=== PATIENT | female | born 1965 | race Caucasian/White ===

== ENCOUNTER 2017-03-27 15:47 | Observation (INO) | payer BC ==
[~2017-03-27] VITALS: Ht 154.9 cm; Wt 73.1 kg
[2017-03-27] MEDS ORDERED: ONDANSETRON 4 MG INJ IV STA (17:40)
[2017-03-27] MEDS ORDERED: morphine 4 MG/ML VIAL IV STA (17:40)
[2017-03-27 17:49] LABS: BASOPHILS % 0.2 % (0.0-2.0); EOSINOPHILS # 0.3 10^3/ul (0.0-0.5); EOSINOPHILS % 2.5 % (0.0-7.0); HEMATOCRIT 42.5 % (37.0-47.0); HEMOGLOBIN 14.5 g/dl (12.0-16.0); LYMPHOCYTES % 20.1 % (15.0-51.0); MEAN CORPUSCULAR HEMOGLOBIN 32.5 pg (29.0-33.0); MEAN CORPUSCULAR HGB CONC 34.1 g/dl (32.0-37.0); MEAN CORPUSCULAR VOLUME 95.3 fl (82.0-101.0); MEAN PLATELET VOLUME 10.7 fl (7.4-10.4); MONOCYTES % 9.5 % (0.0-11.0); NEUTROPHIL # 6.7 10^3/ul (1.6-7.5); NEUTROPHILS % 67.4 % (39.0-77.0); PLATELET COUNT 242 10^3/UL (140-415); RED BLOOD COUNT 4.46 10^6/ul (4.20-5.40); RED CELL DISTRIBUTION WIDTH 11.9 % (11.5-14.5)
[2017-03-27 18:01] LABS: ADD UMIC YES; UR ASCORBIC ACID NEGATIVE (NEGATIVE); UR BILIRUBIN (Dip) NEGATIVE (NEGATIVE); UR BLOOD (Dip) 2+ mg/dL (NEGATIVE); UR CLARITY CLEAR (CLEAR); UR COLOR STRAW (YELLOW); UR GLUCOSE (Dip) NEGATIVE (NEGATIVE); UR KETONES (Dip) NEGATIVE (NEGATIVE); UR LEUKOCYTE ESTERASE (Dip) NEGATIVE Leu/ul (NEGATIVE); UR NITRITE (Dip) NEGATIVE (NEGATIVE); UR RBC 1 /HPF (0-5); UR SPECIFIC GRAVITY (Dip) 1.004 (1.003-1.030); UR SQUAMOUS EPITHELIAL CELL FEW /HPF (FEW); UR TOTAL PROTEIN (Dip) NEGATIVE (NEGATIVE); UR UROBILINOGEN (Dip) NEGATIVE (NEGATIVE)
[2017-03-27 18:08] LABS: ALANINE AMINOTRANSFERASE 121 IU/L (13-69); ALBUMIN 4.5 g/dl (3.3-4.9); ALBUMIN/GLOBULIN RATIO 1.15; ALKALINE PHOSPHATASE 77 IU/L (42-121); ANION GAP 16 (8-16); ASPARTATE AMINO TRANSFERASE 112 IU/L (15-46); BILIRUBIN,INDIRECT 0.7 mg/dl (0-1.1); BILIRUBIN,TOTAL 0.7 mg/dl (0.2-1.3); BLOOD UREA NITROGEN 15 mg/dl (7-20); CALCIUM 9.9 mg/dl (8.4-10.2); CARBON DIOXIDE 28 mmol/L (21-31); CHLORIDE 104 mmol/L (97-110); CREATININE 0.84 mg/dl (0.44-1.00); GLUCOSE 126 mg/dl (70-220); POTASSIUM 4.2 mmol/L (3.5-5.1); SODIUM 144 mmol/L (135-144); TOTAL PROTEIN 8.4 g/dl (6.1-8.1)
[2017-03-27 18:24] LABS: TROPONIN-I < 0.012 ng/ml (0.00-0.12)
[2017-03-27] MEDS ORDERED: SOD CHLORIDE 0.9% 1,000 ML IV STA (18:33)
[2017-03-27] MEDS ORDERED: HYDR-902 PO (19:17)
[2017-03-27] MEDS ORDERED: ONDA4TAB14 PO (19:17)
--- NOTE | 2017-03-27 19:21 | ERD ---
ER Documentation Chief Complaint Chief Complaint RIGHT UPPER ABDOMINAL PAIN SINCE YESTERDAY HPI Patient is a 51-year-old female with hypertension who presents with abdominal pain. The abdominal pain started yesterday. It is in the right upper quadrant and epigastric area. It sharp in nature and comes and goes. The patient has had no treatment as of yet. The patient denies vomiting or diarrhea. The patient does have a primary doctor. ROS All systems reviewed and are negative except as per history of present illness. Medications Home Meds Active Scripts Ondansetron (Ondansetron Odt) 4 Mg Tab.rapdis, 4 MG PO Q6H Y for NAUSEA AND/OR VOMITING, #30 TAB Prov:CHANDRIKA JAIMES MD 03/27/17 Hydrocodone/Acetaminophen ([place] 10-325 Tablet) 1 Each Tablet, 1 TAB PO Q6H Y for PAIN, #7 TAB Prov:CHANDRIKA JAIMES MD 03/27/17 Allergies Allergies: Coded Allergies: No Known Drug Allergy (Verified Allergy, Unknown, 08/07/14) PMhx/Soc History of Surgery: Yes (cholecystectomy, c section, left breast lumpectomy) Anesthesia Reaction: No Hx Neurological Disorder: No Hx Respiratory Disorders: No Hx Cardiac Disorders: No Hx Psychiatric Problems: No Hx Miscellaneous Medical Probl: No Hx Alcohol Use: No Hx Substance Use: No Hx Tobacco Use: No Smoking Status: Never smoker FmHx Family History: No diabetes Physical Exam Vitals Vital Signs Date Time Temp Pulse Resp B/P Pulse Ox O2 Delivery O2 Flow Rate FiO2 03/27/17 15:48 99.5 120 18 150/93 97 Physical Exam Const: Moderate distress secondary to pain Head: Atraumatic Eyes: Normal Conjunctiva ENT: Normal External Ears, Nose and Mouth. Neck: Full range of motion..~ No meningismus. Resp: Clear to auscultation bilaterally Cardio: Regular rate and rhythm, no murmurs Abd: Soft, upper abdominal pain without rebound or guarding Skin: No petechiae or rashes Back: No midline or flank tenderness Ext: No cyanosis, or edema Neur: Awake and alert Psych: Normal Mood and Affect Result Diagram: 03/27/17 1738 03/27/178 Results 24 hrs Laboratory Tests Test 03/27/17 17:38 White Blood Count 10.010^3/ul Red Blood Count 4.4610^6/ul Hemoglobin 14.5g/dl Hematocrit 42.5% Mean Corpuscular Volume 95.3fl Mean Corpuscular Hemoglobin 32.5pg Mean Corpuscular Hemoglobin Concent 34.1g/dl Red Cell Distribution Width 11.9% Platelet Count 33024^3/UL Mean Platelet Volume 10.7fl Neutrophils % 67.4% Lymphocytes % 20.1% Monocytes % 9.5% Eosinophils % 2.5% Basophils % 0.2% Nucleated Red Blood Cells % 0.0/100WBC Neutrophils # 6.710^3/ul Lymphocytes # 2.010^3/ul Monocytes # 1.010^3/ul Eosinophils # 0.310^3/ul Basophils # 0.010^3/ul Nucleated Red Blood Cells # 0.010^3/ul Urine Color STRAW Urine Clarity CLEAR Urine pH 8.0 Urine Specific [place] 1.004 Urine Ketones NEGATIVEmg/dL Urine Nitrite NEGATIVEmg/dL Urine Bilirubin NEGATIVEmg/dL Urine Urobilinogen NEGATIVEmg/dL Urine Leukocyte Esterase NEGATIVELeu/ul Urine Microscopic RBC 1/HPF Urine Microscopic WBC 1/HPF Urine Squamous Epithelial Cells FEW/HPF Urine Hemoglobin 2+mg/dL Urine Glucose NEGATIVEmg/dL Urine Total Protein NEGATIVEmg/dl Sodium Level 144mmol/L Potassium Level 4.2mmol/L Chloride Level 104mmol/L Carbon Dioxide Level 28mmol/L Anion Gap 16 Blood Urea Nitrogen 15mg/dl Creatinine 0.84mg/dl Glucose Level 126mg/dl Calcium Level 9.9mg/dl Total Bilirubin 0.7mg/dl Direct Bilirubin 0.00mg/dl Indirect Bilirubin 0.7mg/dl Aspartate Amino Transf (AST/SGOT) 112IU/L Alanine Aminotransferase (ALT/SGPT) 121IU/L Alkaline Phosphatase 77IU/L Troponin I < 0.012ng/ml Total Protein 8.4g/dl Albumin 4.5g/dl Globulin 3.90g/dl Albumin/Globulin Ratio 1.15 Lipase 103U/L Current Medications Medications (Trade) Dose Ordered Sig/Tanner Route PRN Reason Start Time Stop Time Status Last Admin Dose Admin Morphine Sulfate (morphine) 4 mg ONCE STAT IV 03/27/17 17:40 03/27/17 17:41 DC 03/27/17 17:59 Ondansetron HCl 4 mg 4 mg ONCE STAT IV 03/27/17 17:40 03/27/17 17:41 DC 03/27/17 17:59 Sodium Chloride (NS) 1,000 ml @ 1,000 mls/hr Q1H STAT IV 03/27/17 18:33 03/27/17 19:32 03/27/17 19:02 Procedures/MDM CT abdomen and pelvis is pending radiology read at this time. EKG read by me: Rate/Rhythm: Sinus tachycardia at a rate of 107 Intervals: Normal Impression: Sinus tachycardia without ischemia Patient is a 51-year-old female with hypertension who presents with abdominal pain. Laboratory studies show a mild elevation of the AST and ALT but other laboratory studies were normal. CT scan is pending radiology read at this time. I doubt cholecystectomy as she has had her gallbladder removed. I doubt pancreatitis. I doubt appendicitis or bowel obstruction. I believe that outpatient management would be appropriate if the CT scan does not show any surgical process. She will be given a prescription for [place] and Zofran. She would to follow-up with her primary doctor tomorrow for evaluation. She can return sooner for any worsening symptoms. Departure Diagnosis: Primary Impression: Abdominal pain Abdominal location: epigastric Qualified Code: R10.13 - Epigastric pain Condition: Fair Patient Instructions: Abdominal Pain Additional Instructions: Visite a hiram narvaez para un EXAMEN.Regrese a estas instalaciones si no se mejora partha esperbamos o partha arash gray. CHANDRIKA JAIMES MD Mar 27, 2017 19:21
--- NOTE | 2017-03-27 19:44 | RADRPT ---
PROCEDURE: CT Abdomen and Pelvis without contrast. CLINICAL INDICATION: Abdominal pain. History of prior cholecystectomy, hysterectomy, and left anders ast lumpectomy. TECHNIQUE: CT scan of the abdomen and pelvis without contrast was performed on a multidetector hig h-resolution CT scanner. The patient was scanned without intravenous contrast. Coronal and sagittal reformatted images were obtained from the axial source images. Images were reviewed on a high-resol [employer] PACS workstation. The total exam CTDI equals 8.78 mGy and the total exam DLP equals 488.8 mGy- cm. One or more of the following dose reduction techniques were used: - Automated exposure control. - Adjustment of the mA and/or kV according to patient size. - Use of iterative reconstruction technique. COMPARISON: CT abdomen/pelvis 04/14/2013 FINDINGS: Lack of intravenous contrast limits evaluation. There is trace atelectasis in the right middle lobe and lingula. Lung bases are otherwise clear. The partially imaged heart appears normal in size. There is no evidence of pericardial effusion or thic kening at the levels scanned. Coronary artery calcifications are noted. The liver is normal in size, morphology, and attenuation. There is no evidence of discrete solid hep atic mass or intrahepatic biliary ductal dilatation. The gallbladder surgically absent. Surgical clips are seen in the gallbladder fossa. The spleen, pancreas, and bilateral adrenal glands are unremarkable. The kidneys are normal and symmetric in size, morphology, and attenuation. There is no hydronephrosi s or hydroureter. A punctate calcification in the interpolar left kidney may represent a punctate no nobstructing renal calculus. No perirenal collection is seen. There is a small hiatal hernia. The stomach is partially collapsed and otherwise grossly unremarkabl e. There is fecalization of several small bowel loops and air-fluid levels within mildly dilated sma ll bowel segments in the left abdomen which measure up to 2.9 cm in diameter. There is a fecal-fille d proximal large bowel. There is mild gaseous distension of the distal sigmoid colon. The appendix i s not visualized. No free air free fluid is identified. The lower thoracic and abdominal aorta is normal in course and caliber. No lymphadenopathy is identi fied. The unenhanced urinary bladder is grossly unremarkable. The uterus and bilateral adnexa are unremark able. There are mild degenerative changes of the visualized spine. No suspicious osteolytic or osteoblasti c lesion is detected. IMPRESSION: 1. Trace right middle lobe and lingular atelectasis. 2. Coronary calcifications. 3. Status post cholecystectomy. 4. Small hiatal hernia. 5. There is fecalization of several small bowel loops and air-fluid levels within mildly dilated sma ll bowel segments in the left abdomen which measure up to 2.9 cm in diameter. No free air or free fl uid. Findings raise concern for partial small bowel obstruction versus ileus. 6. Fecal filled proximal large bowel and mild gas-distended distal sigmoid colon. RPTAT: [facility] Physician Pranay Date Time Electronically viewed and signed by Physician Pranay on 03/27/2017 19:43 SARAH/
[2017-03-27] MEDS ORDERED: SOD CHLORIDE 0.9% 1,000 ML IV SCH (20:15)
[2017-03-27] MEDS ORDERED: ONDANSETRON 4 MG INJ IV PRN ×2 (20:30→23:00)
[2017-03-27] MEDS ORDERED: ACETAMINOPHEN 325 MG TAB PO PRN (20:30)
[2017-03-27] MEDS ORDERED: ASPI-664 PO (20:59)
[2017-03-27] MEDS ORDERED: LISI20TA11 PO (20:59)
[2017-03-27 21:38] VITALS: TEMP 98.1
[2017-03-27 22:13] VITALS: Ht 154.9 cm; Wt 73.1 kg
[2017-03-27 22:25] VITALS: BP 129/80; PULSE 125; RESP 18
[2017-03-27] MEDS: DEXTROSE 5%-0.45% NACL 1,000 ML IV SCH (22:49)
[2017-03-27] MEDS ORDERED: hydrALAzine 20 MG INJ IV PRN (23:00)
[2017-03-27] MEDS ORDERED: morphine 4 MG/ML VIAL IV PRN (23:00)
[2017-03-28 02:03] VITALS: BP 122/73; RESP 20
--- NOTE | 2017-03-28 03:57 | HP ---
Date/Time of Note Date/Time of Note DATE: 03/28/17 TIME: 03:45 Assessment/Plan VTE Prophylaxis VTE Prophylaxis Intervention: SCD's Lines/Catheters IV Catheter Type (from Nrs): Saline Lock Urinary Cath still in place: No Assessment/Plan Assessment/Plan 1.Partial small bowel obstruction versus ileus - NPO IVF Pain mgmt will order Small bowel follow through awaiting surgery eval 2. Hx of Left Breast ca: s/p mastectomy 2008 -no acute issue 3. Elevated transaminases -Check repeat a.m. lab for now HPI/ROS Admit Date/Time Admit Date/Time Mar 27, 2017 at 20:15 Hx of Present Illness This is a 51-year-old female with hx of breast ca s/p mastectomy 2008, hypertension, cholecystectomy who presents with abdominal pain x 1 day. Pain is for the most diffuse. No associated N/V. +constipation. CT a/p with indings raise concern for partial small bowel obstruction versus ileus and fecal filled proximal large bowel and mild gas-distended distal sigmoid colon. PMH/Family/Social Social History Smoking Status: Never smoker Exam/Review of Systems Vital Signs Vitals Vital Signs Date Time Temp Pulse Resp B/P Pulse Ox O2 Delivery O2 Flow Rate FiO2 03/28/17 02:03 98.3 65 20 122/73 96 03/27/17 22:25 Room Air Intake and Output 03/27/17 03/27/17 03/28/17 15:00 23:00 07:00 Intake Total 1000 ml Balance 1000 ml Exam Constitutional: alert, oriented, well developed Head: atraumatic, normocephalic Eyes: EOMI, PERRL Respiratory: clear to auscultation, normal air movement Cardiovascular: nl pulses, regular rate and rhythm Gastrointestinal: tender Extremities: normal pulses Labs Result Diagram: 03/27/17 1738 03/27/17 1738 Medications Medications Current Medications Sodium Chloride 1,000 ml @ 80 mls/hr [id number] IV ; Start 03/27/17 at 20:15; Stop 03/28/17 at 08:44 Dextrose/Sodium Chloride (D5-1/2ns) 1,000 ml @ 100 mls/hr Q10H IV Last administered on 03/27/17t 22:49; Admin Dose 100 MLS/HR; Start 03/27/17 at 23: 00 Ondansetron HCl (Zofran Inj) 4 mg Q6H PRN IV NAUSEA AND/OR VOMITING; Start at 23:00 Morphine Sulfate (morphine) 3 mg Q4H PRN IV PAIN; Start 03/27/17 at 23:00 Hydralazine HCl (Apresoline) 10 mg Q4H PRN IV ELEVATED BLOOD PRESSURE; Start 03/27/17 at 23:00 VALE ALBA MD Mar 28, 2017 03:56
[2017-03-28 07:47] VITALS: BP 121/63; RESP 19
[2017-03-28] MEDS: DEXTROSE 5%-0.45% NACL 1,000 ML IV SCH (09:10)
[2017-03-28] MEDS ORDERED: DIATR MEGLU/DIATRIZOATE SODIUM 120 ML BTL ONE (09:53)
--- NOTE | 2017-03-28 09:59 | CONS ---
Date/Time of Note Date/Time of Note DATE: 03/28/17 TIME: 09:54 Assessment/Plan Assessment/Plan Additional Assessment/Plan The patient's CT findings are soft for small bowel obstruction, and the patient' s symptoms have resolved. A small bowel follow-through is pending. Further recommendations will be forthcoming based on the patient's further workup and clinical course. I will follow with you. Consultation Date/Type/Reason Admit Date/Time Mar 27, 2017 at 20:15 Date of Consultation: Mar 28, 2017 Reason for Consultation Ileus versus small bowel obstruction Hx of Present Illness The patient is an otherwise healthy 51-year-old female who presents with a 1 day history of abdominal pain. CT scan suggests ileus versus small bowel obstruction. The patient is admitted and surgical consultation was requested in that regard. Since her admission the patient states that all of her symptoms have gone away. A small bowel follow-through has been ordered and is pending. Constitutional: no complaints Eyes: no complaints ENT: no complaints Respiratory: no complaints Cardiovascular: no complaints Gastrointestinal: no complaints Genitourinary: no complaints Skin: no complaints Neurologic: no complaints Endocrine: no complaints Lymphatic: no complaints Psychological: no complaints Immunologic: no complaints Past Medical History Medical History: gallstones, other (Mastectomy for breast carcinoma) Past Surgical History Past Surgical Hx: appendectomy, cholecystectomy Family History Significant Family History: no pertinent family hx Social History Smoking Status: Never smoker Exam/Review of Systems Vital Signs Vitals Vital Signs Date Time Temp Pulse Resp B/P Pulse Ox O2 Delivery O2 Flow Rate FiO2 03/28/17 07:47 98.2 63 19 121/63 98 03/27/17 22:25 Room Air Intake and Output 03/27/17 03/27/17 03/28/17 14:59 22:59 06:59 Intake Total 1000 ml 620 ml Balance 1000 ml 620 ml Exam Head ears eyes nose and throat: Within normal limits Respiratory: Lungs clear Heart: Regular rhythm Abdomen: Soft and nontender Extremities: Unremarkable Results Result Diagram: 03/27/17 1738 03/27/17 1738 Results 24 hrs Laboratory Tests Test 03/27/17 17:38 White Blood Count 10.0 Red Blood Count 4.46 Hemoglobin 14.5 Hematocrit 42.5 Mean Corpuscular Volume 95.3 Mean Corpuscular Hemoglobin 32.5 Mean Corpuscular Hemoglobin Concent 34.1 Red Cell Distribution Width 11.9 Platelet Count 242 Mean Platelet Volume 10.7 #H Neutrophils % 67.4 Lymphocytes % 20.1 Monocytes % 9.5 Eosinophils % 2.5 Basophils % 0.2 Nucleated Red Blood Cells % 0.0 Neutrophils # 6.7 Lymphocytes # 2.0 Monocytes # 1.0 H Eosinophils # 0.3 Basophils # 0.0 Nucleated Red Blood Cells # 0.0 Urine Color STRAW Urine Clarity CLEAR Urine pH 8.0 Urine Specific [place] 1.004 Urine Ketones NEGATIVE Urine Nitrite NEGATIVE Urine Bilirubin NEGATIVE Urine Urobilinogen NEGATIVE Urine Leukocyte Esterase NEGATIVE Urine Microscopic RBC 1 Urine Microscopic WBC 1 Urine Squamous Epithelial Cells FEW Urine Hemoglobin 2+ H Urine Glucose NEGATIVE Urine Total Protein NEGATIVE Sodium Level 144 Potassium Level 4.2 Chloride Level 104 Carbon Dioxide Level 28 Anion Gap 16 Blood Urea Nitrogen 15 Creatinine 0.84 Glucose Level 126 Calcium Level 9.9 Total Bilirubin 0.7 Direct Bilirubin 0.00 Indirect Bilirubin 0.7 Aspartate Amino Transf (AST/SGOT) 112 H Alanine Aminotransferase (ALT/SGPT) 121 H Alkaline Phosphatase 77 Troponin I < 0.012 Total Protein 8.4 H Albumin 4.5 Globulin 3.90 H Albumin/Globulin Ratio 1.15 Lipase 103 Medications Medications Current Medications Dextrose/Sodium Chloride (D5-1/2ns) 1,000 ml @ 100 mls/hr Q10H IV Last administered on 03/28/17 09:10; Admin Dose 100 MLS/HR; Start 03/27/17 at 23: 00 Ondansetron HCl (Zofran Inj) 4 mg Q6H PRN IV NAUSEA AND/OR VOMITING; Start at 23:00 Morphine Sulfate (morphine) 3 mg Q4H PRN IV PAIN; Start 03/27/17 at 23:00 Hydralazine HCl (Apresoline) 10 mg Q4H PRN IV ELEVATED BLOOD PRESSURE; Start 03/27/17 at 23:00 REVA SAMAYOA MD Mar 28, 2017 09:59
--- NOTE | 2017-03-28 11:15 | RADRPT ---
PROCEDURE: Gastrographin small bowel follow-through series CLINICAL INDICATION: Abdominal pain. Partial Small bowel obstruction TECHNIQUE: Gastrographin small bowel follow-through series was performed following the administrat ion of 240 cc of gastrographin oral contrast. 0.1 minutes of fluoroscopy time was used. 8 images ar e submitted for interpretation. 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 There are no findings of free air or bowel perforation. Mild constipation is again noted. The gallbladder has bee n resected. The stomach is normal in size and morphology. No filling defects or ulcers are seen. Oral contrast f lowed without impediment into the duodenum. The duodenum is also normal. The small bowel loops are normal in caliber. There are no filling defects or findings of small alda l obstruction. The right colon is opacified at 1 hour. This demonstrates appropriate intestinal motility. IMPRESSION: 1. No findings of small bowel obstruction. Appropriate intestinal motility. Opacification of the r ight colon at 1 hour. Mild constipation. RPTAT: EE .Alycia Mayo MD, MD Date Time Electronically viewed and signed by .Alycia Mayo MD, on 03/28/2017 11:14 .F/
[2017-03-28 12:59] LABS: HAAIG REFLEX REFLEX FILED
[2017-03-28 14:06] LABS: HEPATITIS B CORE ANTIBODY NEGATIVE (NEGATIVE)
--- NOTE | 2017-03-28 14:49 | PDOCDIS ---
Discharge Instructions CONDITION Patient Condition: Good HOME CARE INSTRUCTIONS: Diet Instructions: Regular ACTIVITY: Activity Restrictions: No Restrictions Bathing Restrictions: n/a FOLLOW UP/APPOINTMENTS Follow-up Plan FOLLOW UP WITH YOUR PRIMARY CARE PHYSICIAN IN 1-2 WEEKS DOM SEWELL Mar 28, 2017 14:49
--- NOTE | 2017-03-28 15:35 | DS ---
Date/Time of Note Date/Time of Note DATE: 03/28/17 TIME: 15:31 Discharge Summary Admission/Discharge Info Admit Date/Time Mar 27, 2017 at 20:15 Discharge Date/Time March 28, 2017 Discharge Diagnosis 1. Partial small bowel obstruction-resolved Surgical eval appreciated Patient has history of cholecystectomy and and is likely the cause of the bowel obstruction 2. Hx of Left Breast ca: s/p mastectomy 2008 -no acute issue 3. Elevated transaminases Follow-up with PCP Patient Condition: Good Hospital Course Patient is a 51-year-old female with hx of breast ca s/p mastectomy 2008, hypertension, cholecystectomy who presents with abdominal pain x [address] abdomen showed findings concerning for partial small bowel obstruction versus ileus. During the admission patient had a bowel movement, she was seen by surgery and had a small bowel follow-through which was negative. She continued to have bowel movements and was evident that her bowel obstruction had resolved. Etiology of the obstruction is likely from previous cholecystectomy and . On the day of discharge patient's vitals, labs and physical exam are stable she had no acute complaints questions are answered. Home Meds Active Scripts Ondansetron (Ondansetron Odt) 4 Mg Tab.rapdis, 4 MG PO Q6H Y for NAUSEA AND/OR VOMITING, #30 TAB Prov:CHANDRIKA JAIMES MD 03/27/17 Hydrocodone/Acetaminophen ([place] 10-325 Tablet) 1 Each Tablet, 1 TAB PO Q6H Y for PAIN, #7 TAB Prov:CHANDRIKA JAIMES MD 03/27/17 Reported Medications Aspirin* (Aspirin* EC) 81 Mg Tablet.dr, 81 MG PO DAILY, TAB 03/27/17 Lisinopril* (Lisinopril*) 20 Mg Tablet, 20 MG PO DAILY, #30 TAB 03/27/17 Follow-up Plan FOLLOW UP WITH YOUR PRIMARY CARE PHYSICIAN IN 1-2 WEEKS Primary Care Provider Seth Daly MD Time spent on discharge: > 30 minutes DOM SEWELL Mar 28, 2017 15:35
== END 2017-03-28 16:00 | disposition home or self-care (01) ==
LOC: E/R 15:47 → MS1 20:15
PROVIDERS: ADMIT Internal Medicine; ATTEND Internal Medicine
DX: K56.600 Partial intestinal obstruction, unspecified as to cause (principal); R74.0 Nonspecific elevation of levels of transaminase and lactic acid dehydrogenase [LDH]; Z90.49 Acquired absence of other specified parts of digestive tract; Z85.3 Personal history of malignant neoplasm of breast
CPT/HCPCS: 36415; 74176; 74250; 80053; 81001; 83690; 84484; 85025; 86704; 86709; 86803; 87340; 93005; 96361; 96374; 96375; 99285; J2270; J2405; J7030; J7042; Z7500; Z7610; 99217; G0378

== ENCOUNTER 2017-04-05 14:34 | Outpatient (CLI) | payer BC ==
[~2017-04-05] VITALS: Ht 154.9 cm; Wt 71.8 kg
[~2017-04-05 14:34] MED LIST: ASPI-664 PO; HYDR-902 PO; LISI20TA11 PO; ONDA4TAB14 PO
[2017-04-05 14:39] VITALS: BP 139/85; PULSE 100; RESP 18; Ht 154.9 cm; Wt 71.8 kg
--- NOTE | 2017-04-05 15:36 | PN ---
Date/Time of Note Date/Time of Note DATE: 04/05/17 TIME: 15:32 Outpatient Progress Note Chief Complaint Partial small bowel obstruction/left breast CA status post mastectomy/elevated LFT/hypertension HPI Partial small bowel obstruction/patient was recently hospitalized with a partial small bowel obstruction, at present patient denies any nausea vomiting or abdominal distention or cramping, no hematemesis or melena, no fever chill, Left breast CA and status post mastectomy/no pain, no bleeding or discharge, Abnormal LFT/patient had abnormal LFT in the hospital, no jaundice, no nausea or vomiting at present, no history of any history of alcoholism, or hepatitis, Hypertension/no headache or dizziness or lightheadedness, Review of Systems Const: No Fever, no chills, no Wt. loss, no Fatigue, normal appetite, no diaphoresis. Eyes: No pain, no discharge, no redness, no visual change, no foreign body. ENT: No pain, no bleeding, no congestion, no sore throat, no dysphagia, no discharge or rhinitis. Lymph: No adenopathy, no tender nodes, no lymphedema. Resp: No SOB, no cough, no sputum, no wheezing, no chest pain. CV: No chest pain, no palpitaions, no CHÁVEZ, no PND, no edema. GI: Normal appetite, no pain, no nausea, no vomiting, no diarrhea, no blood, no constipation. : No frequency, no urgency, no dysuria, no hematuria, no flank pain, no discharge, no bleeding. Musc: No bone/joint pain, no back pain, no neck pain, no knee pain, no restricted ROM. Skin: No rash, no skin lesions, no erythema, no laceration, no bruising, no pruritus. Neuro: No GASTON, no dizziness, no syncope, no seizure, no focal-weakness. Endo: No polyuria, no polydypsia, no dry-skin, no temp-intolerance. Psych: No hallucinations, no depression, no anxiety, no suicidal ideation. Ext: No edema, no pain, no ulcer, no weakness. Physical Exam Vital Signs Date Time Temp Pulse Resp B/P Pulse Ox O2 Delivery O2 Flow Rate FiO2 04/05/17 14:39 97.7 100 18 139/85 96 Room Air General Appearance: A 51 year-old female who appears well-developed, well- nourished, in no acute distress. HEENT: Head normocephalic, atraumatic. Pupils equal, round, reactive to light and accommodate. Sclerae are no jaundice. Nasal turbinates pink without erythema or nasal discharge. Mucous membranes pink and moist without lesions. Oropharynx clear without any exudate or discharge. NECK: Supple. Trachea midline, No thyromegaly, No cervical lymphadenopathy, No mass, No carotid bruits, No JVD, Carotid pulses 2+ bilaterally. PULMONARY: Clear to auscultaion bilaterally, No retractions, Chest expansion symmetric bilaterally, no rales, no ronchi, no dulness on percussion., status post left-sided mastectomy, secondary to CA breast CARDIAC: Normal SI and S2, Regular rate and rythm, no murmur, gallop, or rub. GASTROINTESTINAL: Abdomen is soft, non-tender, Non Rigid, No distention, Positive bowel sounds x4 quadrants, Liver normal. SKIN: Warm, dry, no rash, no bruise, no echmosis. EXTREMITIES: Bilateral lower extremities normal, no edema, no phlabitus, pulse palpable, no contracture. MUSCULOSKELETAL: Spine Normal, Non-tender, Normal range of motion, No swelling, no deformity, no clubbing, or cyanosis, the patient has no edema to bilateral lower extremities, dorsalis pedis pulses palpable bilaterally. NEUROLOGIC: The patient is awake, alert, oriented, responding to yes/no questions appropriately, moving all extremities, cranial nerve intact, normal strenght, normal power, normal coordination, normal gait. Allergies Coded Allergies: No Known Drug Allergy (Verified Allergy, Unknown, 08/07/14) PMH Partial small bowel obstruction/CA breast left/elevated LFT/hypertension Social Hx No smoking no drinking, Family Hx Noncontributory Assessment/Plan Impression partial small bowel obstruction/resolving Left breast cancer/status post mastectomy Elevated LFT Hypertension Plan Patient education done about her condition and disease, Patient encouraged to follow with the primary care physician, Patient education done for follow-up with a mammogram which she states she has done it, Patient does not have any nausea or vomiting abdominal pain, will monitor closely, patient has all her medication, Medications Home Meds Active Scripts Ondansetron (Ondansetron Odt) 4 Mg Tab.rapdis, 4 MG PO Q6H Y for NAUSEA AND/OR VOMITING, #30 TAB Prov:OSTICK,CHANDRIKA MD 03/27/17 Reported Medications Aspirin* (Aspirin* EC) 81 Mg Tablet.dr, 81 MG PO DAILY, TAB 03/27/17 Lisinopril* (Lisinopril*) 20 Mg Tablet, 20 MG PO DAILY, #30 TAB 03/27/17 Discontinued Scripts Hydrocodone/Acetaminophen ([place] 10-325 Tablet) 1 Each Tablet, 1 TAB PO Q6H Y for PAIN, #7 TAB Prov:CHANDRIKA JAIMES MD 03/27/17 ABRIL JUARES MD Apr 05, 2017 15:36
== END 2017-04-05 15:03 | disposition home or self-care (01) ==
LOC: DCC 14:34
PROVIDERS: ATTEND Internal Medicine
DX: K56.600 Partial intestinal obstruction, unspecified as to cause (principal); I10 Essential (primary) hypertension; Z85.3 Personal history of malignant neoplasm of breast; Z90.12 Acquired absence of left breast and nipple; R79.89 Other specified abnormal findings of blood chemistry; Z79.82 Long term (current) use of aspirin
CPT/HCPCS: G0463

== ENCOUNTER 2018-07-11 17:56 | Emergency (ER) | payer BC, MEDICAID ==
[~2018-07-11] VITALS: Wt 71.0 kg
[~2018-07-11 17:56] MED LIST changes: -ASPI-664 PO; +ASPI-817 PO; -HYDR-902 PO; +LISI-471 PO; -LISI20TA11 PO
--- NOTE | 2018-07-11 22:23 | ERD ---
ER Documentation Chief Complaint Chief Complaint LOWER ABD PAIN X 8 DAYS DENIES N/V HPI The patient is a 52-year-old female, presenting to the ER because of suprapubic abdominal discomfort for the last 8 days, had similar symptoms previously, has not seen a physician, denies fever, chills, neck pain, chest pain, dyspnea, upper abdominal pain, vomiting, diarrhea, constipation, dysuria. She does not smoke nor drink Past medical history: Hypertension Past surgical history: Left mastectomy due to cancer and status post radiation, cholecystectomy ROS All systems reviewed and are negative except as per history of present illness. Medications Home Meds Active Scripts Ibuprofen* (Motrin*) 600 Mg Tab, 600 MG PO Q6H PRN for PAIN AND OR ELEVATED TEMP, #20 TAB Prov:STACY VICTORIA MD 07/12/18 Ondansetron (Ondansetron Odt) 4 Mg Tab.rapdis, 4 MG PO Q6H PRN for NAUSEA AND/OR VOMITING, #30 TAB Prov:CHANDRIKA JAIMES MD 03/27/17 Reported Medications Aspirin* (Aspirin* EC) 81 Mg Tablet.dr, 81 MG PO DAILY, TAB 03/27/17 Lisinopril* (Lisinopril*) 20 Mg Tablet, 20 MG PO DAILY, #30 TAB 03/27/17 Allergies Allergies: Coded Allergies: No Known Drug Allergy (Verified Allergy, Unknown, 08/07/14) PMhx/Soc History of Surgery: Yes (left breast mastectomy (2009); cholecystectomy ()) Anesthesia Reaction: No Hx Neurological Disorder: No Hx Respiratory Disorders: No Hx Cardiac Disorders: Yes (HTN) Hx Psychiatric Problems: No Hx Miscellaneous Medical Probl: No Hx Alcohol Use: No Hx Substance Use: No Hx Tobacco Use: No Smoking Status: Never smoker Physical Exam Vitals Vital Signs Date Temp Pulse Resp B/P (MAP) Pulse Ox O2 O2 Flow FiO2 Time Delivery Rate 07/11/18 98.1 76 22 164/85 99 17:58 (111) Physical Exam Const: No acute distress. Head: Atraumatic. Eyes: Normal Conjunctiva. ENT: Normal External Ears, Nose and Mouth. Neck: Full range of motion. No meningismus. Resp: Clear to auscultation bilaterally. Cardio: Regular rate and rhythm. Abd: Soft, non distended, normal bowel sounds, mild suprapubic abdomi nal discomfort, no right lower quadrant/right upper quadrant/epigastric/CVA tenderness Skin: No petechiae or rashes. Back: No midline or flank tenderness. Ext: No cyanosis, or edema. Neur: Awake and alert. No focal deficit Psych: Normal Mood and Affect. Result Diagram: 07/11/18224907/11/182249 Results 24 hrs Laboratory Tests Test 07/11/18 22:26 07/11/18 22:28 07/11/18 22:50 Bedside Urine pH (LAB) 5.5 Bedside Urine Protein (LAB) Negative Bedside Urine Glucose (UA) Negative Bedside Urine Ketones (LAB) Negative Bedside Urine Blood 2+ Bedside Urine Nitrite (LAB) Negative Bedside Urine Leukocyte Esterase (L Negative POC Beta HCG, Qualitative NEGATIVE White Blood Count 8.2 10^3/ul Red Blood Count 4.09 10^6/ul Hemoglobin 13.5 g/dl Hematocrit 39.1 % Mean Corpuscular Volume 95.6 fl Mean Corpuscular Hemoglobin 33.0 pg Mean Corpuscular Hemoglobin Concent 34.5 g/dl Red Cell Distribution Width 11.9 % Platelet Count 260 10^3/UL Mean Platelet Volume 10.4 fl Immature Granulocytes % 0.100 % Neutrophils % 48.0 % Lymphocytes % 42.4 % Monocytes % 7.0 % Eosinophils % 2.1 % Basophils % 0.4 % Nucleated Red Blood Cells % 0.0 /100WBC Immature Granulocytes # 0.010 10^3/ul Neutrophils # 3.9 10^3/ul Lymphocytes # 3.5 10^3/ul Monocytes # 0.6 10^3/ul Eosinophils # 0.2 10^3/ul Basophils # 0.0 10^3/ul Nucleated Red Blood Cells # 0.0 10^3/ul Sodium Level 142 mmol/L Potassium Level 3.7 mmol/L Chloride Level 104 mmol/L Carbon Dioxide Level 28 mmol/L Anion Gap 10 Blood Urea Nitrogen 16 mg/dl Creatinine 0.66 mg/dl Est Glomerular Filtrat Rate mL/min > 60 mL/min Glucose Level 137 mg/dl Calcium Level 9.4 mg/dl Total Bilirubin 0.5 mg/dl Direct Bilirubin 0.00 mg/dl Indirect Bilirubin 0.5 mg/dl Aspartate Amino Transf (AST/SGOT) 36 IU/L Alanine Aminotransferase (ALT/SGPT) 37 IU/L Alkaline Phosphatase 60 IU/L Total Protein 7.8 g/dl Albumin 4.5 g/dl Globulin 3.30 g/dl Albumin/Globulin Ratio 1.36 Lipase 136 U/L Current Medications Medications Dose Sig/Tanner Start Time Status Last (Trade) Ordered Route PRN Stop Time Admin Dose Reason Admin Ketorolac 30 mg ONCE STAT 07/11/18 DC 07/11/18 Tromethamine IV 23:07 07/11/18 23:27 (Toradol) 23:09 Procedures/[place] [id number] Radiology Main Line: [phone] DIAGNOSTIC IMAGING REPORT Patient: ADAMA CANCHOLA : 1965 Age: 52 Sex: F MR #: [id number] DOS: 07/11/18 2307 Ordering MD: STACY VICTORIA MD Location: E/R Room/Bed: PROCEDURE: Pelvic ultrasound. CLINICAL INDICATION: Pelvic pain. TECHNIQUE: Multiple sonographic images of the pelvis were obtained utilizing a transabdominal and endovaginal technique. The images were reviewed on a PACS workstation. COMPARISON: None. FINDINGS: The uterus is heterogeneous and measures 9.4 x 4.4 x 6.3 cm. There is a small fibroid measuring 1.2 x 1.1 cm. The endometrial echo complex is homogeneous and measures 5.1 mm. There is no evidence for free fluid. The right ovary measures 2.5 x 1.5 x 1.7 cm and demonstrates normal flow. The left ovary is not visualized. No adnexal masses are identified. IMPRESSION: Heterogeneous uterus with a small fibroid. Left ovary not visualized. .Vinicius Mata MD, MD Date Time Electronically viewed and signed by .Vinicius Mata MD, MD on 07/12/2018 00:42 .T/ CC: STACY VICTORIA MD [phone] MEDICAL MAKING DECISION: The patient is a 52-year-old female, presenting with fibroid and hematuria, stable for outpatient follow-up The differential diagnoses considered include but are not limited to fibroid, ovarian cyst, ovarian torsion, PID, UTI Departure Diagnosis: Primary Impression: Fibroid Additional Impression: Hematuria Condition: Good Comments She was discharged with Motrin I discussed the findings with the patient. I advised the patient to follow-up with the machine shop apprentice referral in about 2-3 days, sooner if needed and return if any concern. Disclaimer: Inadvertent spelling and grammatical errors are likely due to EHR/dictation software use and do not reflect on the overall quality of patient care. Also, please note that the electronic time recorded on this note does not necessarily reflect the actual time of the patient encounter. STACY VICTORIA MD Jul 11, 2018 22:23
[2018-07-11] MEDS ORDERED: KETOROLAC 30 MG INJ IV STA (23:07)
[2018-07-12] MEDS ORDERED: IBUP-1542 PO (00:59)
== END 2018-07-12 01:39 | disposition home or self-care (01) ==
LOC: E/R 17:56
DX: D25.9 Leiomyoma of uterus, unspecified (principal); I10 Essential (primary) hypertension; R10.2 Pelvic and perineal pain; Z79.82 Long term (current) use of aspirin; Z85.3 Personal history of malignant neoplasm of breast
CPT/HCPCS: 36415; 76830; 76856; 80053; 81003; 81025; 83690; 85025; 96374; J1885; Z7502